=== PATIENT | male | born 1955 | race Caucasian/White ===

== ENCOUNTER 2016-09-15 08:59 | Day surgery (SDC) | payer OTHER ==
[2016-09-12 14:54] VITALS: BMI 25.0
[~2016-09-15 08:59] MED LIST: LACTATED RINGERS 1,000 ML IV SCH; LIDOCAINE 1% 20 ML VIAL (10MG/ML) FOR IV START INTRADERMA PRN
[2016-09-15 09:45] VITALS: RESP 18; TEMP 98
[2016-09-15] MEDS ORDERED: LIDOCAINE 1% 20 ML VIAL (10MG/ML) FOR IV START INTRADERMA ONE (09:50)
[2016-09-15] MEDS ORDERED: LIDOCAINE 1% INJ 10MG/ML (20 ML MDV) ONE (10:06)
[2016-09-15] MEDS ORDERED: PROPOFOL 10 MG/ML 20 ML VIAL IV ONE (10:06)
--- NOTE | 2016-09-15 10:53 | P.PCN ---
Date of Procedure: 09/15/16 Procedure(s) Performed: Procedure: Total colonoscopy. Preoperative diagnosis: Intermittent rectal bleeding. Postoperative diagnosis: Low-grade internal hemorrhoids not bleeding at the time of this exam, otherwise, exam to the cecum within normal limits. Preparation: HalfLytely prep. Sedation: Was provided by anesthesia. Brief clinical history: The patient is a 61-year-old male who is referred for this evaluation because of intermittent rectal bleeding in the form of blood on the toilet tissue. The patient has been recently diagnosed with thrombocytosis and is on treatment for that with Dr Aparicio. No change in bowel habits or other significant GI complaints. He feels somewhat tired and occasional nausea. His last colonoscopy was around 12 years ago. Procedure: With the patient on his left lateral decubitus position and after informed consent and adequate sedation, the perianal area was inspected and it did not show any fissures or fistulas. There were no masses felt on digital rectal examination. The Olympus CFQ 160L colonoscope was then inserted in the rectum in the usual fashion and advanced to the cecum. The mucosa appeared healthy. No polyps or tumors were seen or any obvious diverticular disease or bleeding. I retroflexed endoscope in the rectum before the endoscope was withdrawn. Low-grade internal hemorrhoids were noted without any evidence of bleeding. The patient tolerated the procedure well. Plan: The patient was reassured. Discussed dietary measures and local care for hemorrhoids. He will follow up with you as planned and I recommended a repeat exam in 10 years.
[2016-09-15 11:12] VITALS: BP 140/84; PULSE 75
== END 2016-09-15 11:45 | disposition home or self-care (01) ==
LOC: ORWHC2ENDO 08:59
DX: K64.8 Other hemorrhoids (principal); D47.3 Essential (hemorrhagic) thrombocythemia; J44.9 Chronic obstructive pulmonary disease, unspecified; F41.9 Anxiety disorder, unspecified; F32.9 Major depressive disorder, single episode, unspecified; C95.90 Leukemia, unspecified not having achieved remission; Z79.82 Long term (current) use of aspirin; Z79.899 Other long term (current) drug therapy
CPT/HCPCS: 45378; J2001; J2704; 99153

== ENCOUNTER → 2017-01-10 | Outpatient (CLI) | payer OTHER ==
--- NOTE | 2017-01-10 10:02 | CTL ---
EXAMINATION TYPE: CT Low Dose Lung DATE OF EXAM ORDERED: 01/10/2017 9:31 AM COMPARISON: None HISTORY: . Low Dose CT Lung Screening CT DLP: 83.[address] CTDI: 2.40 mGy IV CONTRAST USED: None. SCREENING VISIT: First visit COMPARISON: None. TECHNIQUE: Low dose computed tomography scan was performed through the chest at 1 millimeter thick se ctions and reconstructed images in the coronal plane at [address] DIAGNOSTIC QUALITY: Satisfactory FINDINGS: LUNG NODULES: There is biapical scarring noted. No discrete nodules are present within the right lung . Within the left lung on image 149 along the major fissure there is a 4.8 mm solid nodule. No additi onal nodules present at this time. LUNGS: COPD: Severity: Mild Fibrosis: Severity:None Lymph nodes: None Other findings: None RIGHT PLEURAL SPACE: Effusion: None Calcification: None Thickening: None Pneumothorax: None LEFT PLEURAL SPACE: Effusion: None Calcification: None Thickening: None Pneumothorax: None HEART: Heart Size: Mildly enlarged Coronary calcification: Mild Pericardial effusion: None OTHER FINDINGS: Upper abdomen: No significant abnormality Bony thorax: Degenerative changes Supraclavicular region: No significant abnormalityOther: No significant abnormalityI IMPRESSION: Benign FOLLOW UP CT CHEST RECOMMENDATION: Follow-up screening in one year CT LUNG RAD: Benign appearance LUNG RAD CATEGORY 2
== END | disposition home or self-care (01) ==
LOC: RADCTMAIN 09:08
PROVIDERS: ATTEND Internal Medicine Hematology & Oncology
DX: Z12.2 Encounter for screening for malignant neoplasm of respiratory organs (principal); D14.30 Benign neoplasm of unspecified bronchus and lung; Z87.891 Personal history of nicotine dependence

== ENCOUNTER → 2017-06-02 | Outpatient (CLI) | payer OTHER ==
--- NOTE | 2017-06-02 12:34 | CT ---
EXAMINATION TYPE: CT abdomen w con DATE OF EXAM: 06/02/2017 COMPARISON: No pertinent comparisons INDICATION: Liver lesions DLP: 862 mGycm, Automated exposure control for dose reduction was used. CONTRAST: 100 mL of Omnipaque 300. Study performed with Oral Contrast TECHNIQUE: Axial images were obtained from above the diaphragm to the iliac crests at 5 mm thick sect ions Reconstructed images are reviewed on the computer in the coronal plane. FINDINGS: Limited CT sections are obtained the lung bases. The lung bases are clear. CT ABDOMEN: Liver: There is ill-defined hyperintense area on early phase contrast best visualized in the coronal plane series 4 image 35, series 3 image 16 measuring 2.1 by 2.6 x 1.8 cm. This area appears isointens e with liver on delayed images. Findings are likely related to hemangioma. Tiny hypodensity within th e anterior right lobe liver, series 3 image 23, 6 2 small classify may be a small cyst also slightly hypodense on delayed images. Spleen: Normal Pancreas: Normal Adrenal glands: The adrenal glands are normal. Gallbladder: Normal Kidneys: No masses are evident. No hydronephrosis is present. Simple cyst measuring 2 [place] un its. To be at the mid to inferior anterior right kidney measuring 5.7 cm in diameter. Delayed images were obtained through the kidneys, which remain unremarkable. Aorta: Vascular calcification is within the aorta. Inferior vena cava: Normal. Note is made of a retroaortic left renal vein. Loops of bowel within the abdomen and visualized pelvis are normal. There are loops of bowel whic h are incompletely distended or lack oral contrast limiting their evaluation. IMPRESSIONS: 1. Probable hemangioma right lobe liver. 2. Renal cyst right kidney
== END | disposition home or self-care (01) ==
LOC: RADCTMAIN 09:42
PROVIDERS: ATTEND Internal Medicine Hematology & Oncology
DX: N28.1 Cyst of kidney, acquired (principal)
CPT/HCPCS: 74160; Q9967